=== PATIENT | male | born 1990 | race Caucasian/White ===

== ENCOUNTER 2018-12-29 00:07 | Emergency (ER) | payer OTHER ==
[~2018-12-29] VITALS: Ht 185.4 cm; Wt 84.1 kg
[2018-12-29 00:31] VITALS: Ht 185.4 cm; Wt 84.1 kg
[2018-12-29] MEDS ORDERED: DICLOFENAC SODI50 MG PO (00:55)
[2018-12-29 01:50] VITALS: BP 129/57
== END 2018-12-29 01:54 | disposition home or self-care (01) ==
LOC: D.ER 00:07
DX: M25.512 Pain in left shoulder (principal)